=== PATIENT | female | born 1975 | race Caucasian/White ===

== ENCOUNTER 2020-01-10 11:26 | Outpatient (CLI) | payer OTHER, SELFPAY ==
--- NOTE | 2020-01-10 11:35 | MM_ITS ---
WS: [id number] BILATERAL DIGITAL SCREENING MAMMOGRAPHY WITH CAD CLINICAL INFORMATION: SCREENING HISTORY: Screening mammogram. No current complaints. COMPARISON: None. TECHNIQUE: Bilateral CC and MLO views. FINDINGS: The breasts are composed of heterogeneous fibroglandular density tissue, which can limit the detectio n of small underlying mass lesions. Tiny punctate and clustered calcifications subareolar bilateral b reast. No suspicious mass, asymmetry, calcifications, or architectural distortion. No evidence of mal ignancy. MM/[place] [id number] IMPRESSION: BI-RADS: 2-Benign FOLLOW UP: 1 Year Follow-up Recommend return to annual screening mammography.
== END 2020-01-10 11:27 | disposition home or self-care (01) ==
LOC: RADSHAW 11:32
PROVIDERS: Family Provider Family Medicine; PCP Family Medicine; Visit Provider Family Medicine
DX: Z12.31 Encounter for screening mammogram for malignant neoplasm of breast (principal)
CPT/HCPCS: 77067

== ENCOUNTER 2020-06-12 20:06 | Emergency (ER) | payer OTHER, SELFPAY ==
[2020-06-12 20:11] VITALS: BP 140/93; PULSE 91; RESP 18; TEMP 36.9; O2SAT 98; BMI 38.7
[2020-06-12 20:28] LABS: HCG Qualitative Urine. Negative (Negative)
--- NOTE | 2020-06-12 21:49 | W.ED.FEMALGU ---
HPI - Female Genitourinary General: Chief complaint: Urogenital-Female Stated complaint: painful urination Time Seen by Provider: 06/12/20 21:38 History of Present Illness: HPI Narrative: Patient is a 44-year-old female who comes to the ED complaining of UTI symptoms. Patient says dysuria and hematuria started today. She also is complaining of having some very mild pelvic/bladder tenderness. Denies fever, chills, flank pain, nausea or vomiting. Associated symptoms: Deny abdominal pain, headache(s) or nausea Date of Last Menstrual Period: 06/06/20 Review of Systems Const: Denies: fever(s), chills or fatigue Eyes: Denies: change in vision or eye discomfort ENMT: Denies: throat pain, odynophagia, nasal discharge or nasal congestion Card: Denies: chest pain, palpitations, edema, swelling of feet/ankles, dyspnea on exertion or orthopnea Resp: Denies: dyspnea, productive cough or non-productive cough GI: Denies: abdominal pain, nausea, vomiting, diarrhea, constipation or hematochezia : Reports: dysuria, hematuria and pelvic pain (Bladder tenderness); Denies: flank pain Musc: Denies: neck pain, back pain or extremity swelling Skin/Breast: Denies: rash or new lesions Neuro: Denies: headache(s), numbness in extremities or weakness in extremities [facility] ED Female Reproductive History: Date of last menstrual period: 06/06/20 Physical Exam Const: COMMON NORMALS: no acute distress, patient oriented x3, healthy appearing and alert GENERAL APPEARANCE: cooperative and comfortable HENMT: COMMON NORMALS: normocephalic HEAD & SCALP: normocephalic MOUTH: Normal oral and palatal mucosa present THROAT: posterior oropharynx normal and uvula midline Eye: COMMON NORMALS: Equal, round and reactive pupils present PUPIL: Yes Equal, round and reactive pupils present Neck/C-Spine: COMMON NORMALS: supple GENERAL: Yes normal visual inspection Resp: COMMON NORMALS: normal respiratory effort, No retractions, No use of accessory muscles and clear to auscultation bilaterally AUSCULTATION: clear to auscultation bilaterally Cardio: COMMON NORMALS: regular rate, regular rhythm, S1 normal heart sound present, S2 normal heart sound present, No gallops present (Cardio), No clicks present (Cardio), No murmurs present (Cardio) and Peripheral pulses 2+ throughout RATE: regular rate RHYTHM: regular rhythm HEART SOUNDS: S1 normal heart sound present and S2 normal heart sound present PERIPHERAL PULSES: Peripheral pulses 2+ throughout GI: COMMON NORMALS: Normal to inspection, nondistended, normoactive bowel sounds present, Soft to palpation, non-tender and no masses PALPATION: Yes Soft to palpation and Yes Bladder palpation abnormal : COMMON NORMALS: Yes no CVA tenderness BLADDER/KIDNEY EXAM: Yes no CVA tenderness and Yes Bladder palpation abnormal Bladder abnormal details: tender (Mild tenderness) Back/Pelvis: COMMON NORMALS: no CVA tenderness Extremity: COMMON NORMALS: normal to inspection Neuro: COMMON NORMALS: patient oriented x3 and moves all extremities SENSORIUM/ORIENTATION: Yes alert Skin: COMMON NORMALS: no rashes or lesions noted GENERAL SKIN EXAM: no rashes or lesions noted and dry skin Course Vital Signs: Vital signs: Vital Signs Temperature 98.4 F 06/12/20 20:11 Pulse Rate 90 06/13/20 00:10 Respiratory Rate 18 06/13/20 00:10 Blood Pressure 132/86 06/13/20 00:10 Pulse Oximetry 98 06/13/20 00:10 MDM - Female MDM Narrative: Medical decision making narrative: Patient is a 44-year-old female comes to the ED with UTI symptoms. She is complaining of dysuria, hematuria and some lower pelvic/bladder pain. Symptoms started today. UA showed bacteria, many RBCs and WBCs seen as well. Patient diagnosed with a UTI and given a dose of Macrobid while here in the ED. She was sent home with a prescription for Macrobid as well. She was told to follow-up with her PCP in 7 to 10 days for reevaluation. Return to ED precautions given. Patient understood and agree with plan. Lab Data: Attestation: I reviewed the patient's lab results. Labs: Lab Results 06/12/20 06/12/20 Range/Units 20:16 20:16 HCG, Qual Negative (Negative) Urine Color Yellow (Yellow) Urine Appearance Clear (CLEAR) Urine pH 5 (5-7) Ur Specific Gravit y 1.005 (1.005-1.030) Urine Protein 1+ H (Negative) Urine Glucose (UA) Norm (Normal) Urine Ketones Negative (Negative) Urine Blood 3+ H (Negative) Urine Nitrate Negative (Negative) Urine Bilirubin Neg (NEGATIVE) Urine Urobilinogen Norm (Negative) mg/dL Ur Leukocyte Rupali ase 1+ H (Negative) Urine RBC 15-25 H (0-2) /hpf Urine WBC 40-55 H (0-5) /hpf Ur Squamous Epith Cells 0-4 H (0-5) Amorphous Sediment Not Reportable Urine Bacteria 1+ H (NONE) Discharge Plan Discharge Patient Disposition: Home Clinical Impression: Urinary tract infection Qualifiers: Urinary tract infection type: acute cystitis Hematuria presence: with hematuria Qualified Code(s): N30.01 - Acute cystitis with hematuria Condition: Stable Prescriptions: New Macrobid 100 mg capsule 100 mg PO BID 5 Days Qty: 10 RF: 0 No Action [place] Allergy 60 mg Tablet 60 mg PO BID PRN (Reason: ALLERGIES) RF: 0 alprazolam 0.25 mg tablet 0.25 mg PO BID PRN (Reason: Anxiety) RF: 0 ibuprofen 200 mg Tablet 200 mg PO Q6H PRN (Reason: Pain) RF: 0 albuterol sulfate 90 mcg/actuation HFA aerosol inhaler See Rx Instructions .ROUTE .COMPLEX PRN (Reason: Shortness Of Breath) RF: 0 bupropion HCl 300 mg tablet extended release 24 hr 300 mg PO DAILY RF: 0 Discharge Orders: Discharge Order (Routine); Ordered 06/12/20 Ordered By: Binu Mays Referrals: Vahid Dunn MD [Primary Care Provider] - Discharge Diet: Regular Discharge Activity: Resume usual activity Patient Instructions: Urinary Tract Infection in Women (ED) Activity Restrictions/Additional Instructions: Follow-up with medical provider as directed in 7-10 days. Take medications as prescribed. Take [id number] Tylenol or ibuprofen for any pain or fevers. Return to the ER or your medical provider if condition worsens. Please read and understand discharge instructions. If any questions, please ask. 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
[2020-06-12 22:31] LABS: Glucose Urine UA Norm (Normal); Ketones Urine Negative (Negative); Protein Urine 1+ (Negative); Specific Gravity, Urine 1.005 (1.005-1.030); Urine Appearance Clear (CLEAR); Urine Color Yellow (Yellow); pH Urine 5 (5-7)
[2020-06-12 22:32] LABS: Bilirubin Urine Neg (NEGATIVE); Blood Urine 3+ (Negative); Leukocyte Esterase Urine 1+ (Negative); Nitrate Urine Negative (Negative); Urobilinogen Urine Norm (Negative)
[2020-06-12 22:33] LABS: Add Urine Culture? Yes; Bacteria Urine 1+; RBC Urine 15-25 /hpf (0-2); Squamous Epithelial Cell Urine 0-4 (0-5); WBC Urine 40-55 /hpf (0-5)
[2020-06-13 00:10] VITALS: BP 132/86; PULSE 90; RESP 18; O2SAT 98
[2020-06-13] MEDS: nitrofurantoin SR (BID) 100 mg Capsule PO (00:14)
== END 2020-06-13 00:10 | disposition home or self-care (01) ==
PROVIDERS: Emergency Medicine; Emergency Provider Physician Assistant; PCP Family Medicine
DX: N30.01 Acute cystitis with hematuria (principal)
CPT/HCPCS: 12345; 81001; 81025; 87077; 87086; 87186; 99282; 99283

== ENCOUNTER → 2020-06-30 13:32 | Outpatient (BNVA) | payer OTHER, SELFPAY | PROVIDERS: PCP Family Medicine; Visit Provider Nurse Practitioner | DX: R35.0 Frequency of micturition (principal) | CPT/HCPCS: 81000 ==

== ENCOUNTER → 2022-01-10 09:32 | Outpatient (BNVA) | payer BC, SELFPAY | PROVIDERS: PCP Family Medicine; Visit Provider Nurse Practitioner Family | DX: Z20.822 Contact with and (suspected) exposure to COVID-19 (principal); J06.9 Acute upper respiratory infection, unspecified | CPT/HCPCS: 87631; 87635 ==

== ENCOUNTER → 2022-06-28 13:35 | Outpatient (BNVA) | payer BC, SELFPAY | PROVIDERS: PCP Family Medicine; Visit Provider Family Medicine | DX: E28.2 Polycystic ovarian syndrome (principal) | CPT/HCPCS: 80053; 85025; 85610 ==

== ENCOUNTER → 2022-08-25 08:23 | Outpatient (BNVA) | payer BC, SELFPAY | PROVIDERS: PCP Family Medicine; Visit Provider Family Medicine | DX: E28.2 Polycystic ovarian syndrome (principal) | CPT/HCPCS: 84439; 84443; 84481 ==

== ENCOUNTER 2023-04-23 01:50 | Emergency (ER) | payer BC, SELFPAY ==
[2023-04-23 02:12] VITALS: BP 132/92; PULSE 101; RESP 18; TEMP 36.8; O2SAT 99; BMI 35.9
[2023-04-23 02:28] LABS: Add Urine Microscopic? YES; Bilirubin Urine Neg (Negative); Blood Urine 3+ (Negative); Glucose Urine UA Norm (Normal); Ketones Urine Negative (Negative); Leukocyte Esterase Urine 2+ (Negative); Nitrate Urine Negative (Negative); Protein Urine 1+ (Negative); Urine Appearance SL Hazy (CLEAR); Urine Color Orange (Yellow); Urobilinogen Urine Norm (Negative); pH Urine 7 (5-7)
[2023-04-23 02:29] LABS: WBC Urine 55-80 /hpf (0-5)
[2023-04-23 02:30] LABS: Bacteria Urine 1+ /hpf; Squamous Epithelial Cell Urine 0-4 /hpf (0-5)
[2023-04-23 02:31] LABS: Add Urine Culture? Yes
--- NOTE | 2023-04-23 03:07 | PC.NURSE ---
Per MD orders pt was sent home with one Percocet .
[2023-04-23] MEDS: cefdinir 300 MG CAPSULE PO (03:12)
[2023-04-23] MEDS: ketorolac 10 mg Tablet PO (03:12)
[2023-04-23] MEDS: oxyCODONE-APAP 5-325 mg Tablet 2 TAB PO (03:12)
[2023-04-23 03:16] VITALS: BP 128/88; PULSE 92; RESP 16; O2SAT 97
--- NOTE | 2023-04-23 03:20 | ED_ITS ---
HPI - Female Genitourinary General: Chief complaint: Urogenital-Female Stated complaint: Possible UTI Time Seen by Provider: 04/23/23 02:58 Source: patient History of Present Illness: 47-year-old female who started with suprapubic pain around 11 PM. She notes the pain progressed quickly from there. She noticed some blood in her urine, so she came to the emergency room. No fever. No vomiting. No diarrhea. No other sites of bleeding. MD elicited complaint: dysuria and UTI Pertinent past history: recurrent UTIs Onset (ago): hour(s) Location of symptoms: suprapubic Severity: moderate Female Urogenital Radiation: Non-Radiating Vaginal bleeding: none Urinary symptoms: Dysuria and Frequency Exacerbating factors: urination Associated symptoms: Reports abdominal pain; Deny short of breath, fevers/chills, headache(s), nausea, vaginal bleeding, vaginal discharge or weakness Review of Systems Const: Denies: fever(s) Card: Denies: chest pain Resp: Denies: dyspnea GI: Reports: abdominal pain; Denies: nausea : Denies: vaginal discharge Neuro: Denies: headache(s) PFS ED PFSH: Medical History PCOS (polycystic ovarian syndrome) Physical Exam Const: COMMON NORMALS: no acute distress GENERAL APPEARANCE: cooperative; not ill appearing and not frail appearing HENMT: COMMON NORMALS: normocephalic, atraumatic and Normal external nose present HEAD & SCALP: normocephalic and atraumatic FACE & SINUS: normal facial exam and face symmetric NOSE: Normal external nose present Eye: COMMON NORMALS: Equal, round and reactive pupils present and EOMs intact bilaterally PUPIL: Yes Equal, round and reactive pupils present Neck/C-Spine: GENERAL: Yes trachea midline Chest: CHEST: Yes Symmetrical chest wall rise Resp: COMMON NORMALS: normal respiratory effort, No retractions, No use of accessory muscles and clear to auscultation bilaterally AUSCULTATION: clear to auscultation bilaterally Cardio: COMMON NORMALS: regular rate and regular rhythm RATE: regular rate RHYTHM: regular rhythm GI: COMMON NORMALS: Normal to inspection, nondistended, normoactive bowel sounds present PALPATION: Yes Tenderness to palpation present (GI) (Suprapubic) : SPECULUM EXAM - VAGINA: No vaginal bleeding OB/EXTERNAL & SPECULUM: No vaginal bleeding Extremity: COMMON NORMALS: no pedal edema Neuro: AUBREE COMA SCALE: document GCS findings [place] coma scale eye opening: Spontaneous Aubree coma scale verbal response: Orientated [place] coma scale motor response: Obey commands Aubree coma scale total score: 15 SENSORY EXAM: Yes extremities (intact) Psych: COMMON NORMALS: speech normal SPEECH: Yes normal speech Skin: COMMON NORMALS: no rashes or lesions noted GENERAL SKIN EXAM: no rashes or lesions noted Course Vital Signs: Vital signs: Vital Signs Temperature 98.3 F 04/23/23 02:12 Pulse Rate 92 04/23/23 03:16 Respiratory Rate 16 04/23/23 03:16 Blood Pressure 128/88 04/23/23 03:16 Pulse Oximetry 97 04/23/23 03:16 Oxygen Delivery Me thod Room Air 04/23/23 02:12 MDM - Female Medical Decision Making Suprapubic pain in a patient with clear urinary tract infection on urinalysis. Only 5-10 red blood cells. No flank pain. No vomiting. We will treat as an outpatient. She will return for worsening symptoms. Lab Data Laboratory Results Urine Color [place] (Yellow) 04/23/23 02:16 Urine Appearance Sl hazy (CLEAR) A 04/23/23 02:16 Urine pH 7 (5-7) 04/23/23 02:16 Ur Specific [place] 1.000 (1.005-1.030) L 04/23/23 02:16 Urine Protein 1+ (Negative) H 04/23/23 02:16 Urine Glucose (UA) Norm (Normal) 04/23/23 02:16 Urine Ketones Negative (Negative) 04/23/23 02:16 Urine Blood 3+ (Negative) H 04/23/23 02:16 Urine Nitrate Negative (Negative) 04/23/23 02:16 Urine Bilirubin Neg (Negative) 04/23/23 02:16 Urine Urobilinogen Norm mg/dL (Negative) 04/23/23 02:16 Ur Leukocyte Esterase 2+ (Negative) H 04/23/23 02:16 Urine RBC 5-10 /hpf (0-2) H 04/23/23 02:16 Urine WBC 55-80 /hpf (0-5) H 04/23/23 02:16 Ur Squamous Epith Cells 0-4 /hpf (0-5) H 04/23/23 02:16 Amorphous Sediment Not Reportable 04/23/23 02:16 Urine Bacteria 1+ /hpf (NONE) H 04/23/23 02:16 Discharge Plan Discharge Patient Disposition: Home Clinical Impression: Urinary tract infection Condition: Stable Prescriptions: New cefdinir 300 mg capsule 300 mg PO BID 7 Days Qty: 14 0RF ketorolac 10 mg tablet 10 mg PO TID PRN (Reason: pain) Qty: 10 0RF No Action fluticasone propionate 50 mcg/actuation spray,suspension 2 spray intranasal DAILY Rx Instructions: administer into each nostril bupropion HCl 300 mg tablet extended release 24 hr See Rx Instructions .ROUTE .COMPLEX Qty: 90 2RF Dose Instruction: TAKE 1 TABLET BY MOUTH EVERY DAY Rx Instructions: TAKE 1 TABLET BY MOUTH EVERY DAY spironolactone 100 mg tablet 100 mg PO DAILY Qty: 90 11RF alprazolam 0.5 mg tablet 0.25 mg PO BID PRN (Reason: Anxiety) Qty: 30 5RF Rx Instructions: take 1/2 tab as needed. metformin 500 mg tablet 500 mg PO BIDWMEAL Qty: 60 11RF [place] Allergy 60 mg Tablet 60 mg PO BID PRN (Reason: ALLERGIES) ibuprofen 200 mg Tablet 200 mg PO Q6H PRN (Reason: Pain) albuterol sulfate 90 mcg/actuation HFA aerosol inhaler See Rx Instructions .ROUTE .COMPLEX PRN (Reason: Shortness Of Breath) Rx Instructions: inhaled 2 PUFFS PO Q4H PRN Discharge Orders: Discharge ED (Routine); Ordered 04/23/23 Ordered By: Андрей Cordova Referrals: Vahid Dunn MD [Primary Care Provider] - 4-7 days Patient Instructions: Urinary Tract Infection in Women (ED), Opioid Safety, Pain Management Activity Restrictions/Additional Instructions: Return for fever greater than 100 despite 2-3 doses of antibiotics, worsening pain despite treatment, vomiting liquids or medications, other concerning symptoms Coding Level of Care Code 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
== END 2023-04-23 03:15 | disposition home or self-care (01) ==
PROVIDERS: Emergency Provider Emergency Medicine; PCP Family Medicine
DX: N39.0 Urinary tract infection, site not specified (principal); Z79.84 Long term (current) use of oral hypoglycemic drugs
CPT/HCPCS: 81001; 87077; 87086; 87186; 99283

== ENCOUNTER → 2023-08-17 08:29 | Outpatient (BNVA) | payer BC, SELFPAY | PROVIDERS: PCP Family Medicine; Visit Provider Family Medicine | DX: R73.9 Hyperglycemia, unspecified (principal); Z00.00 Encounter for general adult medical examination without abnormal findings; E28.2 Polycystic ovarian syndrome; L65.9 Nonscarring hair loss, unspecified | CPT/HCPCS: 80053; 80061; 83036 ==

== ENCOUNTER 2023-10-04 07:42 | Outpatient (CLI) | payer BC, SELFPAY ==
--- NOTE | 2023-10-04 08:06 | MM_ITS ---
WS: [id number] BILATERAL SCREENING DIGITAL TOMOSYNTHESIS MAMMOGRAM WITH CAD HISTORY: screening COMPARISON: 01/10/2020 Bilateral CC and MLO views with tomosynthesis and synthetic mammography submitted. Computer aided det ection analyzed. Breast composition: The breasts are heterogeneously dense, which may obscure small masses. No suspici ous masses, microcalcifications or architectural distortion. There are numerous calcifications scatte red throughout each breast. No cluster of calcifications. IMPRESSION: MM/[place] [id number] BI-RADS: 2-Benign FOLLOW UP: 1 Year Follow-up
== END 2023-10-04 07:43 | disposition home or self-care (01) ==
LOC: RAD 07:42
PROVIDERS: PCP Family Medicine; Visit Provider Family Medicine
DX: Z12.31 Encounter for screening mammogram for malignant neoplasm of breast (principal)
CPT/HCPCS: 77063; 77067

== ENCOUNTER 2024-03-20 08:32 | Outpatient (CLI) | payer BC, SELFPAY ==
--- NOTE | 2024-03-20 08:45 | MR_ITS ---
WS: [id number] MRI LUMBAR SPINE NONCONTRAST TECHNIQUE: Sagittal T1, T2 and STIR imaging. Axial T1 and T2 imaging. CLINICAL INFORMATION: sciatica on left COMPARISON: MRI 2015 FINDINGS: Partially evaluated large cystic lesion in the pelvis measuring approximately 11.2 x 7.6x 8.8 cm anterior to the uterus. Recommend further evaluation with ultrasound and/or contrast-enhanced CT abdomen pelvis. This compresses the bladder inferiorly L1-L2: Normal. L2-L3: Mild annular bulging. Slight narrowing LEFT subarticular recess. Mild facet arthropathy. Mild LEFT foraminal narrowing. L3-L4: Mild annular bulging. Narrowing of the LEFT subarticular recess. Mild facet arthropathy. Mild LEFT foraminal narrowing. L4-L5: Mild annular bulging. Slight impingement subarticular recess bilaterally and traversing L5 ner ve roots. Moderate facet arthropathy. Mild RIGHT and no significant LEFT foraminal narrowing. Mild/mo derate central canal stenosis. This is progressed compared to previous. L5-S1: Mild annular bulging. Slight effacement of ventral thecal sac. Mild facet arthropathy. Spinal canal and foramen are patent. MR/MR lumbar spine wo con* [id number] IMPRESSION: 1. Partially evaluated large cystic lesion in the pelvis measuring approximate ly 11.2 x 7.6 x 8.8 cm. Recommend further evaluation with ultrasound and/or con trast-enhanced CT abdomen pelvis. This is likely WOUND SPECIALIST or ovarian in origin 2. Mild to moderate central canal stenosis L4-5 has progressed compared to pre vious with mild disc bulging and moderate facet arthropathy. Impingement yoon sing L5 nerve roots bilaterally. Mild RIGHT foraminal narrowing. 3. Annular bulge L3-4 impinges the LEFT subarticular recess and traversing LEF T L4 nerve root. This is also progressed compared to previous. Mild LEFT forami nal narrowing. 4. Moderate facet arthropathy L3-4 and L4-5.
== END 2024-03-20 08:33 | disposition home or self-care (01) ==
LOC: RAD 08:32
PROVIDERS: PCP Family Medicine; Visit Provider Family Medicine
DX: M51.36 Other intervertebral disc degeneration, lumbar region (principal); M47.896 Other spondylosis, lumbar region; M54.16 Radiculopathy, lumbar region; M48.061 Spinal stenosis, lumbar region without neurogenic claudication; M99.63 Osseous and subluxation stenosis of intervertebral foramina of lumbar region; N94.9 Unspecified condition associated with female genital organs and menstrual cycle
CPT/HCPCS: 72148

== ENCOUNTER 2024-03-28 11:28 | Outpatient (CLI) | payer BC, SELFPAY ==
--- NOTE | 2024-03-28 11:31 | CT_ITS ---
WS: [id number] CT ABDOMEN AND PELVIS WITH CONTRAST HISTORY: pelvic mass TECHNIQUE: Imaging performed of the abdomen and pelvis with IV contrast. Single phase imaging of the abdomen. Coronal and sagittal reformats are submitted. All CT scans at [facility] use at [address] one of these dose optimization techniques: automated exposure control; mA and/or kV adjustment per patient size (includes targeted exams where dose is matched to clinical indication); or iterative re construction. IV CONTRAST: Omnipaque 350; 100 mL IV. Oral contrast: Yes. DLP: 674.66 mGy.cm COMPARISON: MRI lumbar spine 03/20/2024. Lower thorax: Lung bases are clear. Heart is normal size. No hiatal hernia. Liver/biliary system: Normal size with no intrahepatic dilatation. Gallbladder: Normal. No gallstones or wall thickening. No pericholecystic fluid. Pancreas: Normal size pancreas and pancreatic duct. No adjacent inflammation. Spleen: Normal size spleen. No mass or infarct. Adrenal glands: Normal. Right kidney: Normal. Left kidney: Normal. Aorta: Normal. Lymphadenopathy: None. Free fluid: None. GI tract: Normal stomach. No small bowel obstruction. Normal appendix. Normal colon. Abdominal wall: Fat containing umbilical hernia. Pelvis: There is a large midline well-circumscribed low-attenuation mass centered in the pelvis. Mass extends over a length of 11 cm, transversely 9.0 x 8.7 cm. No enhancing septation or nodular compone nt is identified. Mass extends to abut and deform the urinary bladder probably limiting distention of the urinary bladder. Mass is inseparable from the superior uterus. A separate RIGHT ovary is identif ied. LEFT ovary is not identified. Favor mass is likely a LEFT ovarian cyst. No ascites. Bones: Unremarkable. CT/CT abdomen pelvis w con* [id number] IMPRESSION: 1. Well-circumscribed cystic mass centered in the pelvis measures 9.0 x 8.7 x 11.0 cm. This is most consistent with a LEFT ovarian cystic mass which will nee d to be further evaluated by WOOL TAMPER and possible surgical excision. Serous cystade noma is within the differential also. Patient is at risk for ovarian torsion du e to the large size of the mass. 2. Midline pelvic mass deforming the urinary bladder and limiting expansion.
[2024-03-28] MEDS: iohexol 350 mg/mL 500 mL Btl (per mL) IV (12:35)
== END 2024-03-28 11:29 | disposition home or self-care (01) ==
LOC: RAD 11:28
PROVIDERS: PCP Family Medicine; Visit Provider Family Medicine
DX: R19.00 Intra-abdominal and pelvic swelling, mass and lump, unspecified site (principal)
CPT/HCPCS: 74177; Q9967

== ENCOUNTER 2024-04-03 09:07 | Day surgery (SDC) | payer BC, SELFPAY ==
[2024-04-03 09:24] VITALS: BP 139/84; PULSE 91; RESP 16; TEMP 36.6; O2SAT 99; BMI 37.8
[2024-04-03] MEDS: sodium chloride 0.9% 1,000 ML 30 ML IV (09:35)
--- NOTE | 2024-04-03 09:35 | ANES.PREANE2 ---
Pre-Anesthetic Assessment Height/Weight: Height 1.55 m Weight 90.718 kg Temp Pulse Resp BP Pulse Ox O2 Del Method 97.8 F 91 16 139/84 99 Room Air 04/03/24 09:24 04/03/24 09:24 04/03/24 09:24 04/03/24 09:24 04/03/24 09:24 04/03/24 09:24 Operation Date: 04/03/24 11:00 Proposed Procedures p EGD [id number], [id number], G0121, Z12.11, K21.9(Not Applicable) - Darinel Grant DO s Colonoscopy(Not Applicable) - Darinel Grant DO Familial anesthetic complications: none Was Beta Flavio taken within 24 hours: N/A Was Clonidine taken within 24 hours: N/A Last intake: Intake Last Liquid Date 04/02/24 Last Liquid Time 22:30 Last Solid Date 04/01/24 Last Solid Time 19:30 Social Alcohol (2-3 times a week), No alcohol and No tobacco Exam alert, oriented x 3, clear to auscultation bilaterally and regular rate & rhythm Airway Submandibular: within normal limits Cervical ROM: within normal limits Mallampati: Class II Dentition: full Pulmonary Asthma and Sleep Apnea CV/HEM None reported None reported Hepatic None reported GI Gastroesophageal Reflux Disease Metabolic None reported Musc/skel Lower Back Pain Neuropsych Anxiety and Depression Anesthetic Plan ASA status: 2 Anesthesia: MAC Risk of > 500 ml blood loss (7ml/kg in children): No Medications/Allergies Home Medications Medication Instructions Recorded Confirmed Last Taken Type albuterol sulfate 90 mcg/actuation 2 puff inhalation Q4H PRN 06/12/20 04/03/24 04/03/24 08:30 History aerosol inhaler Shortness Of Breath fexofenadine 60 mg tablet ([place] 60 mg PO BID PRN ALLERGIES 06/12/20 04/03/24 04/01/24 History Allergy) ibuprofen 200 mg tablet 600 mg PO Q6H PRN Pain 06/12/20 04/03/24 03/31/24 History fluticasone propionate 50 2 spray intranasal DAILY PRN 05/17/22 04/03/24 04/02/24 History mcg/actuation nasal allergies spray,suspension desogestrel 0.15 mg-ethinyl 1 tab PO DAILY #84 tabs 0704/03/24 04/02/24 Rx estradiol 0.03 mg tablet metformin 1,000 mg tablet 1,000 mg PO BIDWMEAL #60 tabs 06/05/23 04/03/24 04/02/24 Rx alprazolam 0.5 mg tablet 0.25 mg (1/2 x 0.5 mg) PO BID PRN 02/15/24 04/03/24 04/01/24 Rx Anxiety #30 tabs spironolactone 100 mg tablet 100 mg PO DAILY #90 tabs 02/15/24 04/03/24 04/02/24 Rx temazepam 15 mg capsule 15 mg PO .QHS #30 caps 02/15/24 04/03/24 04/01/24 Rx pantoprazole 40 mg tablet,delayed 40 mg PO BID PRN acid reflux 6 02/26/24 04/03/24 04/01/24 Rx release (Protonix) weeks #28 tabs bupropion HCl 300 mg 24 hr tablet, 300 mg PO DAILY 04/01/24 04/03/24 04/02/24 History extended release Allergies Allergy/AdvReac Type Severity Reaction Status Date / Time Sulfa (Sulfonamide Allergy ALGY-Hives Verified 04/01/24 13:36 Antibiotics) escitalopram [From Lexapro] AdvReac Intermediate felt foggy Verified 04/01/24 13:36 [facility] Anesthesia Medical History PCOS (polycystic ovarian syndrome) Social History Smoking and tobacco/nicotine status: never used tobacco/nicotine Female Reproductive History Date of last menstrual period: 03/25/24 Data Anesthesia Cardiac Studies: No Data to Display
[2024-04-03 09:37] LABS: Glucose Point of Care 111 mg/dL (70-110)
--- NOTE | 2024-04-03 10:02 | PM.HP ---
Providers/Chief Complaint Primary Care Provider: Vahid Dunn MD Chief Complaint: Z12.11 History of Present Illness Lila Muñiz is a 48 year old female Review of Systems General: Reports: 10 or more systems reviewed and unremarkable except in HPI and below Medications/Allergies Home Medications Medication Instructions Recorded Confirmed Last Taken Type albuterol sulfate 90 mcg/actuation 2 puff inhalation Q4H PRN 06/12/20 04/03/24 04/03/24 08:30 History aerosol inhaler Shortness Of Breath fexofenadine 60 mg tablet ([place] 60 mg PO BID PRN ALLERGIES 06/12/20 04/03/24 04/01/24 History Allergy) ibuprofen 200 mg tablet 600 mg PO Q6H PRN Pain 06/12/20 04/03/24 03/31/24 History fluticasone propionate 50 2 spray intranasal DAILY PRN 05/17/22 04/03/24 04/02/24 History mcg/actuation nasal allergies spray,suspension desogestrel 0.15 mg-ethinyl 1 tab PO DAILY #84 tabs 05/16/23 04/03/24 04/02/24 Rx estradiol 0.03 mg tablet metformin 1,000 mg tablet 1,000 mg PO BIDWMEAL #60 tabs 06/05/23 04/03/24 04/02/24 Rx alprazolam 0.5 mg tablet 0.25 mg (1/2 x 0.5 mg) PO BID PRN 02/15/24 04/03/24 04/01/24 Rx Anxiety #30 tabs spironolactone 100 mg tablet 100 mg PO DAILY #90 tabs 02/15/24 04/03/24 04/02/24 Rx temazepam 15 mg capsule 15 mg PO .QHS #30 caps 02/15/24 04/03/24 04/01/24 Rx pantoprazole 40 mg tablet,delayed 40 mg PO BID PRN acid reflux 6 02/26/24 04/03/24 04/01/24 Rx release (Protonix) weeks #28 tabs bupropion HCl 300 mg 24 hr tablet, 300 mg PO DAILY 04/01/24 04/03/24 04/02/24 History extended release Allergies Allergy/AdvReac Type Severity Reaction Status Date / Time Sulfa (Sulfonamide Allergy ALGY-Hives Verified 04/01/24 13:36 Antibiotics) escitalopram [From Lexapro] AdvReac Intermediate felt foggy Verified 04/01/24 13:36 PFSH Acute PFSH: Medical History PCOS (polycystic ovarian syndrome) Social History Smoking and tobacco/nicotine status: never used tobacco/nicotine Female Reproductive History: Date of last menstrual period: 03/25/24 Vitals/I&O/Wt Last Vital Signs Temp 97.8 F 04/03/24 09:24 Pulse 91 04/03/24 09:24 Resp 16 04/03/24 09:24 BP 139/84 04/03/24 09:24 Pulse Ox 99 04/03/24 09:24 O2 Del Method Room Air 04/03/24 09:24 Weight last 48 hrs Weight 200 lb A&P Assessment and plan (1) GERD (gastroesophageal reflux disease): (2) Colon cancer screening: Plan EGD and colonoscopy Attestations Medical Necessity Statement*: Home Coding Level of Care Code Acute Code for Chg Fwd Diagnoses GERD (gastroesophageal reflux disease) K21.9 Colon cancer screening Z12.11
[2024-04-03 10:28] VITALS: BP 115/76; PULSE 95; RESP 16; TEMP 36.1; O2SAT 95
[2024-04-03 10:41] VITALS: BP 108/92; PULSE 94; RESP 16; O2SAT 96
--- NOTE | 2024-04-03 11:05 | ANE.PACU2 ---
Inpatient post-anesthesia follow up: Airway intact: Yes Vital signs: Temperature 97 F Pulse Rate 94 Respiratory Rate 16 Blood Pressure 108/92 Pulse Oximetry 96 Oxygen Delivery Me thod Room Air Oxygen Flow Rate Fraction of Inspir ed Oxygen Hydration adequate: Yes Nausea and vomiting: No Pain level: 1 Mental status: Baseline
== END 2024-04-03 11:06 | disposition home or self-care (01) ==
PROVIDERS: PCP Family Medicine; Visit Provider Surgery
PROC: 0DJ08ZZ Inspection of Upper Intestinal Tract, Via Natural or Artificial Opening Endoscopic (ICD-10-PCS; CPT 43235; principal; 2024-04-03 11:00)
PROC: 0DJD8ZZ Inspection of Lower Intestinal Tract, Via Natural or Artificial Opening Endoscopic (ICD-10-PCS; CPT 45378; 2024-04-03 11:00)
DX: Z12.11 Encounter for screening for malignant neoplasm of colon (principal); E28.2 Polycystic ovarian syndrome; K21.9 Gastro-esophageal reflux disease without esophagitis; G47.30 Sleep apnea, unspecified; K64.8 Other hemorrhoids
CPT/HCPCS: 36416; 43239; 45378; 82962; 88305; J2704; J7030

== ENCOUNTER → 2024-04-10 14:30 | Outpatient (BNVA) | payer BC, SELFPAY | PROVIDERS: PCP Family Medicine; Visit Provider Obstetrics & Gynecology | DX: R19.00 Intra-abdominal and pelvic swelling, mass and lump, unspecified site (principal); R10.9 Unspecified abdominal pain | CPT/HCPCS: 80053; 84443; 85025; 86304 ==

== ENCOUNTER 2024-04-12 13:53 | Outpatient (CLI) | payer BC, SELFPAY ==
--- NOTE | 2024-04-12 14:15 | US_ITS ---
WS: [id number] US pelv w/transvag [id number] HISTORY: N83.8 - Other noninflammatory disorders of ovary, fallopi... COMPARISON: CT 03/28/2024 Uterus: 8.0 cm x 4.4 cm x 4.2 cm. Normal size anteverted uterus. No fibroid or mass. Endometrium: 0.3 cm. Right ovary: 3.2 cm x 1.6 cm x 1.7 cm. Normal size and vascularity, no cystic or solid masses. Left ovary: Normal LEFT ovary is not identified. Reidentified is a large cystic mass in the central p [place] which extends above the urinary bladder. This is a cystic mass with through transmission. No so lid component or septation is identified. Cyst measures 7.9 x 7.9 x 10.4 cm. No free fluid in the cul-de-sac. US/US pelv w/transvag [id number] IMPRESSION: 1. Large midline pelvic cystic mass measures 7.9 x 7.9 x 10.4 cm. Corresponds to the mass described on the recent CT of 03/28/2024. This may be a large functi onal cyst but serous cystadenoma is within the differential. Recommend surgical excision due to its large size. 2. Otherwise no abnormality.
== END 2024-04-12 13:54 | disposition home or self-care (01) ==
LOC: RAD 13:53
PROVIDERS: PCP Family Medicine; Visit Provider Obstetrics & Gynecology
DX: N83.8 Other noninflammatory disorders of ovary, fallopian tube and broad ligament (principal); R19.00 Intra-abdominal and pelvic swelling, mass and lump, unspecified site
CPT/HCPCS: 76830; 76856

== ENCOUNTER 2024-04-18 09:20 | Day surgery (SDC) | payer BC, SELFPAY ==
[2024-04-18] VITALS (10 sets, daily range): BP systolic 91–141; BP diastolic 63–92; PULSE 69–90; RESP 14–23; TEMP 36.1–36.6; O2SAT 96–100; BMI 37.4
--- NOTE | 2024-04-18 01:04 | W.PM.OPSFHP ---
Same Day Surgery H&P Indication for Procedure/HPI DATE OF PROCEDURE: April 18, 2024 CHIEF COMPLAINT/INDICATIONFOR SURGICAL PROCEDURE: ovarian cyst PREOP DIAGNOSIS: ovarian cyst PLANNED PROCEDURE: Operation Date: 04/18/24 11:05 Proposed Procedures p Laparoscopic Ovarian Cystectomy 29484, 27590, 79962, R19.00(Left) - Edison Paula MD s Laparoscopic Oophorectomy/ possible(Left) - Edison Paula MD s Exploratory Laparotomy(Not Applicable) - Edison aPula MD 48 y.o. with 11 cm ovarian cyst now scheduled for cystectomy, possible oophorectomy Medications/Allergies* Home Medications Medication Instructions Recorded Confirmed Type albuterol sulfate 90 mcg/actuation 2 puff inhalation Q4H PRN 06/12/20 04/17/24 History aerosol inhaler Shortness Of Breath ibuprofen 200 mg tablet 600 mg PO Q6H PRN Pain 06/12/20 04/17/24 History fluticasone propionate 50 2 spray intranasal DAILY PRN 05/17/22 04/17/24 History mcg/actuation nasal allergies spray,suspension bupropion HCl 300 mg 24 hr tablet, 300 mg PO DAILY 04/01/24 04/17/24 History extended release Allergies/Adverse Reactions Allergy/AdvReac Type Severity Reaction Status Date / Time Sulfa (Sulfonamide Allergy ALGY-Hives Verified 04/17/24 10:23 Antibiotics) escitalopram [From Lexapro] AdvReac Intermediate felt foggy Verified 04/17/24 10:23 Pertinent History/Comorbid Conditions* Medical History (Updated 04/15/24 @ 13:54 by Darinel Grant DO) PCOS (polycystic ovarian syndrome) Family History (Updated 04/10/24 @ 13:08 by Tamara Pagan LPN) Diabetes Father Heart disease Grandmother Grandfather Breast cancer Grandmother Hypertension Mother Thyroid disease Sister Stroke Father Denies family history of Colon cancer Ovarian cancer Prostate cancer Hypercholesteremia Uterine cancer Pertinent Exam Findings alert, oriented x 3, clear to auscultation bilaterally and regular rate & rhythm Pertinent Data CT of abdomen and pelvis 03-28-24 11 cm ovarian cyst Pelvic sono 04-12-24 10.5 cm ovarian cyst, clear No solid component, septation, or excrescences CA125 normal Recommendations Surgery/Procedure today Coding Level of Care Code Acute Code for Chg Fwd Time Spent (min) 20
[2024-04-18] MEDS: scopolamine 1.5 Patch 1 PATCH TRANSDERMA (09:56)
[2024-04-18] MEDS: sodium chloride 0.9% 1,000 ML 30 ML IV (09:56)
--- NOTE | 2024-04-18 10:12 | W.PM.OPSUD ---
Surgery/Procedure H&P Update DATE OF PROCEDURE: April 18, 2024 DATE H&P PERFORMED: 04/10/24 H&P UPDATE INFORMATION: I have reviewed H&P completed within last 30 days, I have examined patient prior to procedure and No changes to prior documentation PREOP DIAGNOSIS: ovarian cyst PLANNED PROCEDURE: Operation Date: 04/18/24 11:05 Proposed Procedures p Laparoscopic Ovarian Cystectomy 79332, 42603, 97395, R19.00(Left) - Edison Paula MD s Laparoscopic Oophorectomy/ possible(Left) - Edison Paula MD s Exploratory Laparotomy(Not Applicable) - Edison Paula MD
--- NOTE | 2024-04-18 10:19 | ANES.PREANE2 ---
Pre-Anesthetic Assessment Height/Weight: Height 1.55 m Weight 89.811 kg Temp Pulse Resp BP Pulse Ox O2 Del Method 97.9 F 86 18 141/92 99 Room Air 04/18/24 09:38 04/18/24 09:38 04/18/24 09:38 04/18/24 09:38 04/18/24 09:38 04/18/24 09:38 Preop Diagnosis: ovarian cyst Operation Date: 04/18/24 11:05 Proposed Procedures p Laparoscopic Ovarian Cystectomy 25286, 08764, 16651, R19.00(Left) - Edison Paula MD s Laparoscopic Oophorectomy/ possible(Left) - Edison Paula MD s Exploratory Laparotomy(Not Applicable) - Edison Paula MD Familial anesthetic complications: None Was Beta Flavio taken within 24 hours: N/A Was Clonidine taken within 24 hours: N/A Last intake: Intake Last Liquid Date 04/17/24 Last Liquid Time 23:45 Last Solid Date 04/17/24 Last Solid Time 18:00 Social No alcohol and No tobacco Exam alert, oriented x 3, clear to auscultation bilaterally and regular rate & rhythm Airway Mallampati: Class II Dentition: full Pulmonary Asthma and Sleep Apnea GI Gastroesophageal Reflux Disease Metabolic PCOS on metformin Anesthetic Plan ASA status: 2 Anesthesia: General Risk of > 500 ml blood loss (7ml/kg in children): No Medications/Allergies Home Medications Medication Instructions Recorded Confirmed Last Taken Type albuterol sulfate 90 mcg/actuation 2 puff inhalation Q4H PRN 06/12/20 04/18/24 04/18/24 History aerosol inhaler Shortness Of Breath ibuprofen 200 mg tablet 600 mg PO Q6H PRN Pain 06/12/20 04/17/24 03/31/24 History fluticasone propionate 50 2 spray intranasal DAILY PRN 05/17/22 04/17/24 04/02/24 History mcg/actuation nasal allergies spray,suspension desogestrel 0.15 mg-ethinyl 1 tab PO DAILY #84 tabs 05/16/23 04/17/24 04/17/24 Rx estradiol 0.03 mg tablet metformin 1,000 mg tablet 1,000 mg PO BIDWMEAL #60 tabs 06/05/23 04/17/24 04/17/24 Rx alprazolam 0.5 mg tablet 0.25 mg (1/2 x 0.5 mg) PO BID PRN 02/15/24 04/17/24 04/17/24 Rx Anxiety #30 tabs spironolactone 100 mg tablet 100 mg PO DAILY #90 tabs 02/15/24 04/17/24 04/17/24 Rx temazepam 15 mg capsule 15 mg PO .QHS #30 caps 02/15/24 04/17/24 04/01/24 Rx pantoprazole 40 mg tablet,delayed 40 mg PO BID PRN acid reflux 6 02/26/24 04/17/24 04/17/24 Rx release (Protonix) weeks #28 tabs bupropion HCl 300 mg 24 hr tablet, 300 mg PO DAILY 04/01/24 04/17/24 04/17/24 History extended release Allergies Allergy/AdvReac Type Severity Reaction Status Date / Time Sulfa (Sulfonamide Allergy ALGY-Hives Verified 04/17/24 10:23 Antibiotics) escitalopram [From Lexapro] AdvReac Intermediate felt foggy Verified 04/17/24 10:23 Current Medications Generic Name Dose Route Start Last Admin Trade Name Freq PRN Reason Stop Dose Admin Sodium Chloride 1,000 mls @ 30 mls/hr 04/18/24 09:30 04/18/24 09:56 Sodium Chloride 0.9% IV 04/19/24 09:29 30 mls/hr .Q24H BRENT Administration PFSH Anesthesia Medical History PCOS (polycystic ovarian syndrome) Family History Grandmother Breast cancer Heart disease Father Diabetes Stroke Grandfather Heart disease Mother Hypertension Sister Thyroid disease Denies family history of Colon cancer Ovarian cancer Prostate cancer Hypercholesteremia Uterine cancer Female Reproductive History Date of last menstrual period: 04/12/24 Data Anesthesia Cardiac Studies: No Data to Display
[2024-04-18 12:00] LABS: Cyto Order Verification Order Verified
--- NOTE | 2024-04-18 13:15 | ANE.PACU2 ---
Inpatient post-anesthesia follow up: Airway intact: Yes Vital signs: Temperature 97.8 F Pulse Rate 76 Respiratory Rate 18 Blood Pressure 104/77 Pulse Oximetry 99 Oxygen Delivery Me thod Room Air Oxygen Flow Rate Fraction of Inspir ed Oxygen Hydration adequate: Yes Nausea and vomiting: No Pain level: 1 Mental status: Baseline
--- NOTE | 2024-04-18 13:20 | PM.OP ---
Operative Report Date of procedure: April 18, 2024 Pre-op diagnosis: Left ovarian cyst, 12 cm Post-op diagnosis: same Post-op findings: Normal uterus Normal right ovary Normal right fallopian tube Presence of a 12 cm left adnexal cyst No separate left ovary seen Left fallopian tube adherent to left adnexal cyst Otherwise normal pelvis Procedure done: Laparoscopy Laparoscopic left cystectomy and salpingectomy Implants: none Specimens removed/disposition: left adnexal cyst fluid, sent for cytology left adnexal cyst and left fallopian tube Surgeon: Edison Paula MD Anesthesia: General Estimated blood loss (mL): 5 Complications: none Findings: Normal uterus Normal right ovary Normal right fallopian tube Presence of a 12 cm left adnexal cyst No separate left ovary seen Left fallopian tube adherent to left adnexal cyst Otherwise normal pelvis Condition: stable Disposition: PACU Brief History: 48 y.o. with 11-12 cm left adnexal cyst on pelvic sono Procedure: Informed consent obtained. The patient was taken to the OR and placed supine on the table. General endotracheal anesthesia was given. The patient was then placed in dorsolithotomy position. The abdomen and perineum were prepped and draped in usual fashion. A 5 mm subumbilical skin incision was made. A laparoscopic trocar with sheath was inserted into the peritoneal cavity under direct vision with the laparoscope. Pneumoperitoneum was achieved. Two separate 5 mm incisions were made in the right and left mid-abdominal quadrants under direct visualization to accommodate additional trocars and sheaths. The pelvis was explored with the laparoscope. Normal uterus, right ovary and tube were seen. No abnormalities were seen in the utero-ovarian ligaments, broad ligaments, anterior cul-de-sac and pelvic side-mantilla. The left adnexa showed a 12 cm cyst. No separate left ovary can be seen. The left fallopian tube was adherent to the cyst. A laparoscopic long needle attached to a syringe was inserted into the cyst, and approximately 300 cc of clear serous fluid was obtained. The needles was then removed. The suspensory ligament was then clamped close to the cyst wall, avoiding the pelvic side-wall, and ligated and cut using the Ligasure device. In this fashion, the left adnexal cyst and left fallopian tube were removed. An 11- mm trocar was used to replace the umbilical 5 mm trocar. A laparoscopic endopouch was introduced via the 11 mm trocar and the left adnexal cyst and fallopian tube were removed. No bleeding was seen. The pelvis was inspected and there were no other abnormalities. All instruments were then removed from the abdominal cavity after the pneumoperitoneum was allowed to escape. The subumbilical fascia was closed with a stitch of O-Vicryl The skin incisions were closed with 4-O monocryl. Dermabond was applied. The patient was then awakened and taken to the recovery room in good condition. Postop condition stable. EBL 5 cc. There were no complications. Sponge and instrument counts were correct x two
[2024-04-20 08:57] LABS: OR HCG Qualitative Urine Negative (Negative)
== END 2024-04-18 13:16 | disposition home or self-care (01) ==
PROVIDERS: PCP Family Medicine; Visit Provider Obstetrics & Gynecology
PROC: (CPT 58662; principal; 2024-04-18 10:55)
PROC: (CPT 58661; 2024-04-18 10:55)
DX: N83.202 Unspecified ovarian cyst, left side (principal); G47.30 Sleep apnea, unspecified; K21.9 Gastro-esophageal reflux disease without esophagitis; E28.2 Polycystic ovarian syndrome; Z79.84 Long term (current) use of oral hypoglycemic drugs
CPT/HCPCS: 49322; 58661; 81025; 88112; 88302; 88305; J1100; J1200; J1885; J2250; J2405; J2704; J2710; J3010; J3490; J7030

== ENCOUNTER 2024-12-16 07:50 | Outpatient (CLI) | payer BC, SELFPAY ==
--- NOTE | 2024-12-16 08:00 | MM_ITS ---
WS: [id number] VIEWS: MLO and CC views both breasts. 3D digital tomosynthesis is also included in this exam. Comparison made with prior exam of 01/10/2020, 10/04/2023.. Findings: The breasts are heterogeneously dense, which may obscure small masses. No sign of suspicious mass, tumor calcification or architectural distortion. MM/MM scr BI tomosynthesis [id number] Impression: BI-RADS: 2 - Benign FOLLOW-UP: 1 Year Follow-up This mammogram was also analyzed by the Computer Aided Detection System R2 Imag e Long Chain Beamer.
== END 2024-12-16 07:51 | disposition home or self-care (01) ==
PROVIDERS: PCP Family Medicine; Visit Provider Family Medicine
DX: Z12.31 Encounter for screening mammogram for malignant neoplasm of breast (principal); R92.333 Mammographic heterogeneous density, bilateral breasts
CPT/HCPCS: 77063; 77067

== ENCOUNTER → 2025-03-04 08:47 | Outpatient (BNVA) | payer BC, SELFPAY | PROVIDERS: PCP Family Medicine; Visit Provider Family Medicine | DX: R51.9 Headache, unspecified (principal); F41.9 Anxiety disorder, unspecified; E28.2 Polycystic ovarian syndrome; M54.9 Dorsalgia, unspecified; G89.29 Other chronic pain; L65.9 Nonscarring hair loss, unspecified | CPT/HCPCS: 80048; 80061; 84443; 86003; 86008 ==

== ENCOUNTER → 2025-09-02 09:45 | Outpatient (BNVA) | payer BC, SELFPAY | PROVIDERS: PCP Family Medicine; Visit Provider Family Medicine | DX: I10 Essential (primary) hypertension (principal); E87.6 Hypokalemia | CPT/HCPCS: 80048; 84550 ==